=== PATIENT | female | born 1990 | race Caucasian/White ===

== ENCOUNTER 2019-10-08 11:47 | Observation (INO) | payer OTHER ==
[~2019-10-08 11:47] MED LIST: DSS100 PO; IBUP-2070 PO; TYL3 PO
== END 2019-10-08 12:00 | disposition home or self-care (01) ==
LOC: 4S 11:47
PROVIDERS: ADMIT Obstetrics & Gynecology; ATTEND Obstetrics & Gynecology
DX: Z03.818 Encounter for observation for suspected exposure to other biological agents ruled out (principal); O62.9 Abnormality of forces of labor, unspecified; Z3A.39 39 weeks gestation of pregnancy
CPT/HCPCS: 87635; G0378

== ENCOUNTER 2019-10-09 15:43 | Inpatient (IN) | payer OTHER ==
[2019-10-09] MEDS ORDERED: OXYTOCIN 30 UNITS/LACT RINGERS 500 ML IV ONE (16:07)
[2019-10-09] MEDS ORDERED: RINGERS SOLUTION,LACTATED 1,000 ML IV PRN (16:07)
[2019-10-09] MEDS ORDERED: TERBUTALINE SULFATE 1 MG/ML VIAL SQ PRN (16:15)
[2019-10-09] MEDS ORDERED: METOCLOPRAMIDE HCL 5 MG/ML 2 ML VIAL IVP PRN (16:15)
[2019-10-09] MEDS ORDERED: METHYLERGONOVINE MALEATE 0.2 MG/ML VIAL IM PRN (16:15)
[2019-10-09] MEDS ORDERED: CITRIC ACID/SODIUM CITRATE 30 ML SOLUTION UDCUP PO PRN (16:15)
[2019-10-09] MEDS ORDERED: LIDOCAINE/PF 1% 30 ML VIAL INJ PRN (16:15)
[2019-10-09] MEDS ORDERED: FentaNYL CITRATE-PF 100 MCG/2 ML VIAL IVP PRN (16:15)
[2019-10-09 16:45] LABS: BASOPHILS % (AUTO) 0.3 % (0.0-2.0); EOSINOPHILS % (AUTO) 0.9 % (1.0-6.0); HEMOGLOBIN 11.6 g/dL (12.0-16.0); LYMPHOCYTES # (AUTO) 1.3 K/uL (1.0-4.8); LYMPHOCYTES % (AUTO) 21.8 % (22.0-44.0); MEAN CORPUSCULAR HEMOGLOBIN 29.8 pg (26.0-34.0); MEAN CORPUSCULAR VOLUME 88 fL (80-100); MONOCYTES # (AUTO) 0.7 K/uL (0.1-1.0); MONOCYTES % (AUTO) 12.3 % (2.0-9.0); NEUTROPHILS # (AUTO) 3.9 K/uL (1.8-7.7); NEUTROPHILS % (AUTO) 64.7 % (40.0-70.0); PLATELET COUNT (AUTO)-OB 223 K/uL (150-450); RED BLOOD CELL COUNT(AUTO) 3.89 MIL/uL (4.00-5.20); RED CELL DISTRIBUTION WIDTH 13.9 % (11.5-14.5)
[2019-10-09] MEDS ORDERED: OXYGEN THERAPY IH SCH (20:00)
[2019-10-09] MEDS: RINGERS SOLUTION,LACTATED 1,000 ML IV SCH (20:04)
[2019-10-09 21:12] VITALS: BP 94/54
[2019-10-10] MEDS ORDERED: OXYTOCIN 30 UNITS/LACT RINGERS 500 ML IV PRN (02:30)
[2019-10-10] MEDS: RINGERS SOLUTION,LACTATED 1,000 ML IV SCH ×2 (03:32→11:36)
[2019-10-10] MEDS ORDERED: ROPIVACAINE HCL/PF 0.2% 100 ML ED ONE (09:34)
[2019-10-10] MEDS ORDERED: ROPIVACAINE HCL/PF 0.2% 100 ML ED PRN (09:45)
[2019-10-10] MEDS ORDERED: ONDANSETRON HCL 4 MG/2 ML VIAL IVP PRN (09:45)
[2019-10-10] MEDS ORDERED: DiphenhydrAMINE HCL 50 MG/ML VIAL IVP PRN (09:45)
[2019-10-10] MEDS ORDERED: OXYTOCIN 30 UNITS/LACT RINGERS 500 ML IV ONE (13:22)
[2019-10-10] MEDS ORDERED: LANOLIN 7 GM OINTMENT TP PRN (13:30)
[2019-10-10] MEDS ORDERED: OxyCODONE HCL/ACETAMINOPHEN 5-325 MG TABLET PO PRN ×2 (13:30)
[2019-10-10] MEDS ORDERED: GLYCERIN/WITCH HAZEL LEAF 40 PADS JAR TP PRN (13:30)
[2019-10-10] MEDS ORDERED: BENZOCAINE 20%/MENTHOL 56 GM SPRAY CANISTER TP PRN (13:30)
[2019-10-10] MEDS: IBUPROFEN 800 MG TABLET PO PRN (16:00)
[2019-10-10] MEDS: MAGNESIUM HYDROXIDE SUSPENSION 30 ML UDCUP PO PRN (20:49)
[2019-10-11] MEDS: IBUPROFEN 800 MG TABLET PO PRN (04:27)
[2019-10-11 06:43] LABS: BASOPHILS % (AUTO) 0.3 % (0.0-2.0); EOSINOPHILS % (AUTO) 0.4 % (1.0-6.0); LYMPHOCYTES # (AUTO) 1.6 K/uL (1.0-4.8); MEAN CORPUSCULAR HEMOGLOBIN 30.2 pg (26.0-34.0); MEAN CORPUSCULAR HGB CONC 34.5 G/dL (31.0-37.0); MEAN CORPUSCULAR VOLUME 88 fL (80-100); MONOCYTES # (AUTO) 0.9 K/uL (0.1-1.0); MONOCYTES % (AUTO) 8.6 % (2.0-9.0); NEUTROPHILS # (AUTO) 8.3 K/uL (1.8-7.7); NEUTROPHILS % (AUTO) 75.7 % (40.0-70.0); PLATELET COUNT (AUTO)-OB 198 K/uL (150-450); RED BLOOD CELL COUNT(AUTO) 3.65 MIL/uL (4.00-5.20); RED CELL DISTRIBUTION WIDTH 13.9 % (11.5-14.5)
[2019-10-11] MEDS: MAGNESIUM HYDROXIDE SUSPENSION 30 ML UDCUP PO PRN (08:08)
[2019-10-11] MEDS ORDERED: IBUP-2070 PO (11:23)
== END 2019-10-11 14:10 | disposition home or self-care (01) | DRG 807 ==
LOC: 4S 15:43 → PREOBSVTOIN 10-29 15:51
PROVIDERS: ADMIT Obstetrics & Gynecology Obstetrics; ATTEND Obstetrics & Gynecology Obstetrics
PROC: 10E0XZZ Delivery of Products of Conception, External Approach (ICD-10-PCS; principal; 2019-10-10)
PROC: 10907ZC Drainage of Amniotic Fluid, Therapeutic from Products of Conception, Via Natural or Artificial Opening (ICD-10-PCS; 2019-10-10)
PROC: 3E0R3BZ Introduction of Anesthetic Agent into Spinal Canal, Percutaneous Approach (ICD-10-PCS; 2019-10-10)
PROC: 00HU33Z Insertion of Infusion Device into Spinal Canal, Percutaneous Approach (ICD-10-PCS; 2019-10-10)
DX: O80 Encounter for full-term uncomplicated delivery (principal); Z37.0 Single live birth; Z3A.39 39 weeks gestation of pregnancy
CPT/HCPCS: 86850; 86900; 86901; J2590; J2795; J7120